=== PATIENT | female | born 1960 | race Caucasian/White ===

== ENCOUNTER 2024-04-04 09:12 | Outpatient (CLI) | payer MEDICARE, MEDICAID ==
[~2024-04-04] VITALS: Ht 162.6 cm; Wt 81.6 kg
[2024-04-04] MEDS: albuterol 2.5 MG/3 ML nebule NEB ONE (09:45)
[2024-04-04 09:49] VITALS: PULSE 62; RESP 18; O2SAT 96
[2024-04-04 10:02] VITALS: PULSE 63; RESP 18
== END 2024-04-04 23:59 | disposition home or self-care (01) ==
LOC: RT 09:12
PROVIDERS: ATTEND Registered Nurse
DX: J45.909 Unspecified asthma, uncomplicated (principal)
CPT/HCPCS: 94060; 94729; 94760; J7030